=== PATIENT | female | born 1990 | race Caucasian/White ===

== ENCOUNTER 2017-02-01 17:38 | Emergency (ER) | payer MEDICAID ==
[2017-02-01 17:44] VITALS: RESP 16
[2017-02-01] MEDS ORDERED: NS 1,000 ML IV ONE (18:01)
--- NOTE | 2017-02-01 18:06 | EDPHY ---
H & P Time Seen by Provider: 02/01/17 18:01 HPI/ROS: CHIEF COMPLAINT: Syncope HISTORY OF PRESENT ILLNESS: This patient is a 26 year old female who presents to the Emergency Department after a syncopal episode while at work. She reports that she turned around, felt dizzy, and "blacked out." She denies injuries from falling; she did not hit her head. Upon arrival, she continues to feel "groggy" but otherwise has no additional complaints. Her last period was 12/22/2015; she is unsure how long she has been . Medical history includes three syncopal episodes during the first trimester when previously . REVIEW OF SYSTEMS: Constitutional: No fever, no chills Eyes: No visual changes ENT: No sore throat Respiratory: No cough, no shortness of breath Cardiac: No chest pain Gastrointestinal: No nausea, no vomiting, no abdominal pain Genitourinary: No hematuria, no dysuria Musculoskeletal: No leg pain or swelling Skin: No rash Neurological: No headache, no numbness, no weakness Psychiatric: No depression Past Medical/Surgical History: Hyperemesis gravidarum and 3 syncopal episodes with prior . Social History: . Works as a [employer]. Smoking Status: Current every day smoker Physical Exam: General Appearance: Alert, no distress Eyes: Pupils equal and round, no conjunctival pallor or injection ENT, Mouth: Mucous membranes moist Neck: Normal inspection Respiratory: Lungs are clear to auscultation Cardiovascular: Regular rate and rhythm Gastrointestinal: Abdomen is soft and non- tender Neurological: A&O, nonfocal, normal gait Skin: Warm and dry, no rash Extremities: Nontender, no pedal edema Psychiatric: Mood and affect normal Constitutional: Initial Vital Signs Temperature (C) 36.9 C 02/01/17 17:42 Heart Rate 81 02/01/17 17:42 Respiratory Rate 16 02/01/17 17:42 Blood Pressure 105/66 02/01/17 17:42 O2 Sat (%) 95 02/01/17 17:42 O2 Delivery Mode Room Air Allergies/Adverse Reactions: azithromycin Allergy (Verified 02/01/17 17:42) SOB Home Medications: Medication Instructions Recorded NK [No Known Home Meds] 02/01/17 Medical Decision Making - Diagnostics Imaging: Study: Obstetrics US Indication: Syncope in first trimester of Results: Obstetrics ultrasound was obtained. The results of the study are: intrauterine of length 7 weeks, 6 days with HR 146. The study was read by the radiologist, Dr. Bridger Song. I viewed the images myself on the PACS system. ED Course/Re-evaluation: This is a 26 year old female in first trimester of of unknown duration who presents following a single syncopal episode while at work. She has a history of prior syncopal episodes while and was evaluated at that time with no conclusive cause. Will proceed with obstetrics US to r/o ectopic . IV established. 1L IV NS administered. Labs reviewed and are unremarkable. 192: Imaging results reported to me by Dr. Bridger Song. 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 She is agreeable to this and will be discharged home in good condition with customary return precautions. Differential Diagnosis: includes though not limited to ectopic , dehydration, dysrhythmia, hypoglycemia - Data Points Laboratory Results: Laboratory Results 02/01/17 18:08 02/01/17 18:08 Medications Given: Discontinued Medications Sodium Chloride (Ns) 1,000 mls @ 0 mls/hr IV ONCE ONE PRN Reason: Wide Open Stop: 02/01/17 18:02 Last Admin: 02/01/17 18:12 Dose: 1,000 mls Departure - Departure Disposition: Home, Routine, Self-Care Clinical Impression: Intrauterine Syncope Qualifiers: Syncope type: unspecified Qualified Code(s): R55 - Syncope and collapse Condition: Good Instructions: (ED), Syncope (ED) Additional Instructions: 1. Your ultrasound today revealed an intrauterine , 7 weeks and 6 days. Please follow-up with your drive in theater attendant for recommended evaluations throughout your . 2. Make sure to drink plenty of fluids and eat regular meals throughout your . Rest regularly. 3. Return to the Emergency Department if you experience repeat episodes of fainting, lightheadedness, vaginal bleeding, pelvic cramping, uncontrollable vomiting, or other serious concerns. Referrals: Nadja Green [Primary Care Provider] - As per Instructions [facility],. [Clinic] - As per Instructions Stand Alone Forms: Work Excuse Report Scribed for: Cecile Cloe Report Scribed by: Helga Monge Date of Report: 02/01/17 Time of Report: 18:05 Physician Review and Approval Statement: 02/01/17 18:05 Portions of this note were transcribed by a director of medical review. I personally performed a history, physical exam, medical decision making, and confirmed accuracy of information the transcribed note.
[2017-02-01 18:17] LABS: % IMMATURE GRANULYOCYTES 0.3 % (0.0-1.1); ABSOLUTE IMMATURE GRANULOCYTES 0.03 10^3/uL (0.00-0.10); ADD DIFF? NO; ADD MORPH? NO; ADD SCAN? NO; ATYPICAL LYMPHOCYTE FLAG 10 (0-99); FRAGMENT RBC FLAG 0 (0-99); HEMATOCRIT 38.1 % (38.0-47.0); HEMOGLOBIN 12.8 g/dL (12.6-16.3); LEFT SHIFT FLG 0 (0-99); LIPEMIA HEMOLYSIS FLAG 80 (0-99); MEAN CELL HEMOGLOBIN 32.3 pg (27.9-34.1); MEAN CELL HEMOGLOBIN CONCENTR. 33.6 g/dL (32.4-36.7); MEAN CELL VOLUME 96.2 fL (81.5-99.8); MEAN PLATELET VOLUME 9.5 fL (8.7-11.7); PLATELET CLUMPS FLAG 0 (0-99); PLATELET COUNT 220 10^3/uL (150-400); RED BLOOD CELL COUNT 3.96 10^6/uL (4.18-5.33); RED CELL DISTRIBUTION WIDTH 11.9 % (11.5-15.2)
[2017-02-01 18:40] LABS: ANION GAP 10 mEq/L (8-16); CALCIUM 9.1 mg/dL (8.5-10.4); CARBON DIOXIDE 23 mEq/l (22-31); CHLORIDE 105 mEq/L (97-110); CREATININE 0.6 mg/dL (0.6-1.0); GLOMERULAR FILTRATION RATE > 60; GLUCOSE 76 mg/dL (70-100); POTASSIUM 3.9 mEq/L (3.5-5.2); SODIUM 138 mEq/L (134-144)
[2017-02-01 19:48] VITALS: BP 109/71; PULSE 79; TEMP 98.6; O2SAT 94
== END 2017-02-01 19:47 | disposition home or self-care (01) ==
DX: O99.89 Other specified diseases and conditions complicating pregnancy, childbirth and the puerperium (principal); R55 Syncope and collapse; F17.200 Nicotine dependence, unspecified, uncomplicated; Z3A.08 8 weeks gestation of pregnancy

== ENCOUNTER 2017-02-28 12:54 | Emergency (ER) | payer MEDICAID ==
--- NOTE | 2017-02-28 13:12 | EDPHY ---
H & P Stated Complaint: Sore Throat/ fatigue Time Seen by Provider: 02/28/17 13:02 HPI/ROS: CHIEF COMPLAINT: URI symptoms times 24 hours HISTORY OF PRESENT ILLNESS: 26-year-old female, currently 10 weeks complaining of 24 hours of sore throat, rhinorrhea, nonproductive cough , myalgias. No urinary abnormality. No vaginal bleeding or discharge. No abdominal pain or cramping. No nuchal rigidity. No fever or chills. No rash. She has had ultrasonographic confirmation for already. PRIMARY CARE PROVIDER:[facility] REVIEW OF SYSTEMS: A ten point review of systems was performed and is negative with the exception of the items mentioned in the HPI PAST MEDICAL & SURGICAL HISTORY: currently 10 weeks . Tonsillectomy SOCIAL HISTORY: nonsmoker PHYSICAL EXAM (Prior to examination, patient consented to physical exam, hands were washed and my usual and customary physical exam procedures followed) 1) GENERAL: Well-developed, well-nourished, alert and oriented. Appears nontoxic 2) HEAD: Normocephalic, atraumatic 3) HEENT: Pupils equal, round, reactive to light bilaterally. Sclera anicteric. Oropharynx: Posterior oropharynx erythematous. No trismus no drooling. No hot potato voice. Ears bilaterally with normal tympanic membranes. 4) NECK: Full range of motion, positive submandibular adenopathy.. 5) LUNGS: Clear auscultation bilaterally, no wheezes, no rhonchi, no retractions. 6) HEART: Regular rate and rhythm, no murmur, no heave, no gallop. 7) ABDOMEN: No guarding, no rebound, no focal tenderness, negative McBurney's, negative Hahn's, negative Rovsing's, negative peritoneal sign, 8) MUSCULOSKELETAL: Moving all extremities, no focal areas of tenderness, no obvious trauma. No peripheral edema or discoloration. 9) BACK: No CVA tenderness. 10) SKIN: No rash, no petechiae. 11) Psychiatric: Patient is oriented X 3, there is no agitation. DIFFERENTIAL DIAGNOSIS: no particular include but limited to viral URI, bronchitis, pneumonia, meningitis, mononucleosis, strep pharyngitis, influenza, UTI - Personal History LMP (Females 10-55): Current Tetanus/Diphtheria Vaccine: Yes Current Tetanus Diphtheria and Acellular Pertussis (TDAP): Yes - Medical/Surgical History Hx Asthma: No Hx Chronic Respiratory Disease: No Hx Diabetes: No Hx Cardiac Disease: No Hx Renal Disease: No Hx Cirrhosis: No Hx Alcoholism: No Hx HIV/AIDS: No Hx Splenectomy or Spleen Trauma: No Other PMH: [place] teeth. colonoscopy 2014; HAS CYSTS ON BOTH OVARIES. HYPOTHYROID A CHILD - Social History Smoking Status: Former smoker Constitutional: Initial Vital Signs Temperature (C) 36.6 C 02/28/17 12:56 Heart Rate 94 02/28/17 12:56 Respiratory Rate 14 02/28/17 12:56 Blood Pressure 98/56 L 02/28/17 12:56 O2 Sat (%) 96 02/28/17 12:56 O2 Delivery Mode Room Air Allergies/Adverse Reactions: azithromycin Allergy (Verified 02/28/17 12:56) SOB Home Medications: Medication Instructions Recorded Cephalexin [Keflex] 500 mg PO TID 7 Days 02/28/17 Medical Decision Making ED Course/Re-evaluation: Patient has been re-evaluated with serial examinations most recently at 2:00 p[address]iscuss[address] case [address]. Cole in the emergency department. She has negative strep, negative influenza, negative mono testing. I think that her URI symptoms are more than likely secondary to acute viral etiology. Urinalysis was obtained as she noted a recent urinary tract infection although notes no urinary abnormality such as dysuria hematuria increased frequency. She is noted to have asymptomatic bacteriuria. In the presence of I recommended urine culture and starting the patient on antibiotics. We discussed the risks of asymptomatic bacteriuria during . Recommend she follow up with her OBGYN. Her lungs are clear bilaterally, maintaining normal saturations. Do not think that chest x-ray currently indicated. She feels comfortable being discharged. - Data Points Laboratory Results: 02/28/17 02/28/17 02/28/17 Unknown 13:20 13:20 Urine Color YELLOW Urine Appearance MODERATELY TURBID Urine pH 6.0 (5.0-7.5) Ur Specific [place] 1.017 (1.002-1.030) Urine Protein NEGATIVE (NEGATIVE) Urine Ketones NEGATIVE (NEGATIVE) Urine Blood NEGATIVE (NEGATIVE) Urine Nitrate NEGATIVE (NEGATIVE) Urine Bilirubin NEGATIVE (NEGATIVE) Urine Urobilinogen NEGATIVE EU EU (0.2-1.0) Ur Leukocyte Esterase NEGATIVE (NEGATIVE) Urine RBC 1-3 /hpf /hpf (0-3) Urine WBC 1-3 /hpf /hpf (0-3) Ur Epithelial Cells TRACE /lpf /lpf (NONE-1+) Amorphous Sediment PRESENT /hpf /hpf (NONE-1+) Urine Bacteria TRACE /hpf H /hpf (NONE SEEN) Urine Mucus TRACE /lpf /lpf (NONE-1+) Urine Glucose NEGATIVE (NEGATIVE) Monoscreen Influenza Typ A,B (DFA) NEGATIVE FOR FLU (NEGATIVE) Group A Strep Screen Group A Strep DNA Pending 02/28/17 02/28/17 13:20 13:20 Urine Color Urine Appearance Urine pH Ur Specific [place] Urine Protein Urine Ketones Urine Blood Urine Nitrate Urine Bilirubin Urine Urobilinogen Ur Leukocyte Esterase Urine RBC Urine WBC Ur Epithelial Cells Amorphous Sediment Urine Bacteria Urine Mucus Urine Glucose Monoscreen NEGATIVE (NEGATIVE) Influenza Typ A,B (DFA) Group A Strep Screen NEGATIVE (NEGATIVE) Group A Strep DNA Departure - Departure Disposition: Home, Routine, Self-Care Clinical Impression: Viral URI, Asymptomatic bacteriuria during Condition: Good Instructions: Urinary Tract Infection in Women (ED), Upper Respiratory Infection (ED) Additional Instructions: Return to emergency department if you develop fever, chills, nausea, vomiting, shortness of breath or any other symptoms that concern you Referrals: [facility],. [Clinic] - 1-2 days without fail Prescriptions: Cephalexin [Keflex] 500 mg PO TID 7 Days
[2017-02-28 13:36] LABS: COLOR YELLOW; LEUKOCYTE ESTERASE,URINE NEGATIVE (NEGATIVE); NITRITE,URINE NEGATIVE (NEGATIVE)
[2017-02-28 13:44] LABS: AMORPHOUS PRESENT /hpf (NONE-1+); BACTERIA TRACE /hpf (NONE SEEN); MUCUS TRACE /lpf (NONE-1+)
[2017-02-28 14:14] VITALS: BP 113/72; PULSE 84; RESP 20; TEMP 97.3; O2SAT 94
== END 2017-02-28 14:14 | disposition home or self-care (01) ==
DX: O99.511 Diseases of the respiratory system complicating pregnancy, first trimester (principal); J06.9 Acute upper respiratory infection, unspecified; O23.41 Unspecified infection of urinary tract in pregnancy, first trimester; B96.89 Other specified bacterial agents as the cause of diseases classified elsewhere; Z3A.10 10 weeks gestation of pregnancy; Z87.891 Personal history of nicotine dependence

== ENCOUNTER 2017-06-12 22:00 | Observation (INO) | payer MEDICAID ==
[2017-06-12] MEDS ORDERED: ONDANSETRON DISINTEGRATING 4 MG TAB PO PRN (22:48)
[2017-06-12] MEDS ORDERED: LOPERAMIDE HCL 2 MG CAP PO PRN (22:48)
[2017-06-12] MEDS ORDERED: D5W LR 500 ML IV ONE (23:00)
[2017-06-12] MEDS ORDERED: D5W LR 1,000 ML IV SCH (23:00)
[2017-06-13] MEDS ORDERED: METOCLOPRAMIDE 10 MG/2 ML VIAL IVP SCH
[2017-06-13] MEDS ORDERED: METOCLOPRAMIDE 10 MG/2 ML VIAL ONE (00:14)
== END 2017-06-13 01:10 | disposition home or self-care (01) ==
LOC: FLD 22:00
PROVIDERS: ADMIT Obstetrics & Gynecology; ATTEND Obstetrics & Gynecology
DX: O99.89 Other specified diseases and conditions complicating pregnancy, childbirth and the puerperium (principal); R19.7 Diarrhea, unspecified; R11.2 Nausea with vomiting, unspecified; Z3A.26 26 weeks gestation of pregnancy
CPT/HCPCS: G0378 ×2; J2765

== ENCOUNTER 2018-02-12 09:04 | Emergency (ER) | payer MEDICAID ==
[2018-02-12 09:10] VITALS: TEMP 98.4; O2SAT 95
--- NOTE | 2018-02-12 09:37 | EDPHY ---
General Time Seen by Provider: 02/12/18 09:33 Narrative: CHIEF COMPLAINT: Fall, back pain HISTORY OF PRESENT ILLNESS: Patient presents with complaints of back pain after fall. She was exiting her home this morning when she slipped and fell. She reports striking her thoracic and low back on her steps. Denies head strike or loss of consciousness. She was caring both children, neither of whom was injured. She has moderate to severe thoracic pain both midline and right of midline. [id number] lumbar pain midline. No radiating pain. No numbness, tingling or weakness. No incontinence of bowel or bladder. No difficulty ambulating. No abdominal or chest pain. Pain is worse with palpation and movement. Improved at rest but does not resolved. No other associated complaints or modifying factors. REVIEW OF SYSTEMS: Ten systems reviewed and are negative unless otherwise noted in the HPI PCP: Dr. Green SPECIALISTS: None PAST MEDICAL HISTORY: Uncomplicated medical history PAST SURGICAL HISTORY: No recent surge SOCIAL HISTORY: Daily smoker. No drug or alcohol use. FAMILY HISTORY: Noncontributory EXAMINATION General Appearance: Alert, no distress Head: normocephalic, atraumatic. No Moreno sign. No raccoon eyes. Eyes: Pupils equal and round, no conjunctival pallor or injection ENT, Mouth: Mucous membranes moist airway widely patent. Neck: Normal inspection, supple, non-tender. No crepitus, step-off or deformity. No meningeal signs. Respiratory: Lungs are clear to auscultation. No wheezing rhonchi or crackles Cardiovascular: Regular rate and rhythm. No murmur. Symmetric radial pulses 2 +. Symmetric DP pulses 2+. Gastrointestinal: Obese Abdomen is soft and nontender. No distention or tympany. Back: Tenderness of the thoracic spine and right of midline over the soft tissue and posterior rib margins. Lumbar tenderness midline. No crepitus or deformity. Range of motion retain. Neurological: GCS 15. A&O, nonfocal, antalgic but steady gait. Strength is symmetric in all 4 limbs. Patellar reflexes 2+. No foot drop. Normal strength of both great toes. Skin: Warm and dry, no rash. No petechiae. No purpura. No puncture laceration. Multiple tattoes Extremities: Nontender, no pedal edema. Symmetric range of motion all 4 extremities. Psychiatric: Mood and affect normal DIFFERENTIAL DIAGNOSES: Including but not limited to contusion, strain, sprain, fracture, dislocation, rib fracture, rib contusion MDM: 9:35 a.m. Fall down steps outside of home this morning with pain in the thoracic or lumbar spine. There is soft tissue neck pain that radiates to the occiput, but there is no midline tenderness of the neck. She has no evidence of acute cord compression or cauda equina. No sensory deficits. Her strength is symmetric with patellar reflexes symmetric. I have ordered ibuprofen and x-rays of areas of concern. 10:20 a.m. X-rays as read by me reveal no acute findings. There are chronic changes. 11:00 a.m. X-rays have been read by radiologist and there are no acute findings aside from mild T10 anterior compression. This is suspected to be chronic. I re- evaluated the patient and given her history, mechanism location of pain I agree this is likely chronic and less likely acute. She has no radicular pain. She has no neuro deficits. She is fully ambulatory without difficulty. We discussed follow up with primary care physician for further care. We discussed short course of pain medication and muscle relaxant. She is comfortable this plan and discharged home stable condition SUPERVISION: This patient was independently evaluated without direct involvement of or examination by the attending physician. - Diagnostics Imaging Results: Imaging Impressions Lumbar Spine X-Ray 02/12/18 09:37 Impression: Evidence of early degenerative disk disease at L5-S1. No evidence for acute fracture. Thoracic Spine X-Ray 02/12/18 09:37 Impression: Minimal anterior wedge compression deformity of T10. This is nonspecific but more likely chronic with the adjacent degenerative disk disease above and below this level. Ribs w/Chest X-Ray 02/12/18 09:38 Impression: No evidence for fracture. No evidence for acute cardiopulmonary abnormality. - History Smoking Status: Current every day smoker - Objective Vital Signs: Initial Vital Signs Temperature (C) 98.4 F 02/12/18 09:07 Heart Rate 90 02/12/18 09:07 Respiratory Rate 16 02/12/18 09:07 Blood Pressure 111/83 H 02/12/18 09:07 O2 Sat (%) 95 02/12/18 09:07 O2 Delivery Mode Room Air Allergies/Adverse Reactions: azithromycin Allergy (Verified 02/12/18 09:05) SOB Home Medications: Medication Instructions Recorded Cyclobenzaprine [Flexeril 10 MG 10 mg PO TID PRN #5 tab 02/12/18 (*)] Hydrocodone/APAP 5/325 [[place] 1 - 2 tab PO Q4H PRN #5 tab 02/12/18 5/325 (*)] Medications Given: Discontinued Medications Ibuprofen (Motrin) 600 mg PO EDNOW ONE Stop: 02/12/18 09:39 Last Admin: 02/12/18 10:04 Dose: 600 mg Departure - Departure Disposition: Home, Routine, Self-Care Clinical Impression: Fall Qualifiers: Encounter type: initial encounter Qualified Code(s): W19.XXXA - Unspecified fall, initial encounter Acute thoracic back pain Qualifiers: Back pain laterality: right Qualified Code(s): M54.6 - Pain in thoracic spine Acute lumbar back pain Qualifiers: Back pain laterality: midline Sciatica presence: without sciatica Qualified Code(s): M54.5 - Low back pain Condition: Good Instructions: Low Back Strain (ED), Acute Low Back Pain (ED), Fall Prevention ( ED) Additional Instructions: 1. Ice to affected area as needed 2. [id number] a Lidoderm patch is as needed for 12 hr on and 12 hr off 3. Prescription medications as provided as needed 4. Follow up with primary care physician and on-call orthopedics as provided 5. ED precautions for worsening pain, numbness, tingling, weakness, incontinence of bowel or bladder, difficulty ambulating Referrals: Nadja Green [Primary Care Provider] - As per Instructions Prescriptions: Cyclobenzaprine [Flexeril 10 MG (*)] 10 mg PO TID PRN #5 tab PRN Reason: Spasms Hydrocodone/APAP 5/325 [[place] 5/325 (*)] 1 - 2 tab PO Q4H PRN #5 tab PRN Reason: Pain, Moderate
[2018-02-12] MEDS ORDERED: IBUPROFEN 600 MG TAB PO ONE (09:38)
[2018-02-12 10:32] VITALS: BP 91/49; PULSE 74; RESP 18
== END 2018-02-12 11:12 | disposition home or self-care (01) ==
DX: S39.92XA Unspecified injury of lower back, initial encounter (principal); S29.9XXA Unspecified injury of thorax, initial encounter; F17.200 Nicotine dependence, unspecified, uncomplicated; W01.198A Fall on same level from slipping, tripping and stumbling with subsequent striking against other object, initial encounter; Y92.009 Unspecified place in unspecified non-institutional (private) residence as the place of occurrence of the external cause; Y99.8 Other external cause status; Y93.89 Activity, other specified